=== PATIENT | male | born 1970 | race African-American/Black ===

== ENCOUNTER 2016-10-20 15:22 | Emergency (ER) | payer OTHER ==
[~2016-10-20] VITALS: Ht 170.2 cm; Wt 68.0 kg
[~2016-10-20 15:22] MED LIST: DILANTIN100 MG ORAL
--- NOTE | 2016-10-20 16:29 | Diagnostic Imaging Report ---
Indications: Technique: Spiral acquisitions obtained through the brain. Angled axial and coronal 5 x 5 mm slices were reconstructed. Total dose length product 1340 mGycm. CTDI vol(s) 70 mGy. Dose reduction achieved using automated exposure control Comparison: None Findings: There is a large left convexity craniotomy/craniectomy defect. Small metallic fragments are seen deep and superficial to the defect. There is a large area of cystic encephalomalacia deep to the defect involving nearly the entire left parietal lobe, significant portions of the posterior left frontal lobe, most of the left temporal lobe, and most of the left occipital lobe. This communicates with the left ventricle, which is dilated. There is also some loss of basal ganglia parenchyma. There is slight leftward mediastinal shift which is presumably an ex vacuo phenomenon. No acute hemorrhage no edema. No mass effect. A metallic fragment is seen adjacent to the right optic globe. The orbits are otherwise unremarkable. There is an old healed fracture deformity of the left zygomatic arch. Included sinuses are clear. The mastoids are clear. Impression: Large left convexity craniotomy/craniectomy defect. Very large area of underlying encephalomalacia, as described above. Correlate with surgical history as regards etiology. Negative for acute intracranial bleed or mass effect Metallic foreign body adjacent to the right optic globe The CT scanner at [facility] is accredited by the [employer] and the scans are performed using protocols designed to limit radiation exposure to as low as reasonably achievable to attain images of sufficient resolution adequate for diagnostic evaluation.
[2016-10-20] MEDS ORDERED: TOPAMAX25 MG ORAL (16:33)
[2016-10-20 16:40] LABS: BASOPHILS % (AUTO) 1.4 % (0.0-2.0); LYMPHOCYTES % (AUTO) 16.4 % (20.0-45.0); MEAN CORPUSCULAR HEMOGLOBIN 31.9 PG (27.0-31.0); MEAN CORPUSCULAR HGB CONC 35.4 G/DL (32.0-36.0); MEAN CORPUSCULAR VOLUME 90 FL (80-99); MEAN PLATELET VOLUME 5.5 FL (6.5-10.1); MONOCYTES % (AUTO) 6.7 % (1.0-10.0); NEUTROPHILS % (AUTO) 70.5 % (45.0-75.0); PLATELET COUNT 346 K/UL (150-450); RED BLOOD COUNT 4.39 M/UL (4.70-6.10); RED CELL DISTRIBUTION WIDTH 13.6 % (11.6-14.8); WHITE BLOOD COUNT 6.6 K/UL (4.8-10.8)
[2016-10-20 17:04] LABS: AMMONIA 31 umol/L (16-60)
[2016-10-20 17:05] LABS: ACETAMINOPHEN < 10 ug/mL (10-30); ALANINE AMINOTRANSFERASE 17 U/L (3-41); ALBUMIN/GLOBULIN RATIO 1.6 (1.0-2.7); ALCOHOL < 10 mg/dL; ANION GAP 16 (5-15); ASPARTATE AMINO TRANSFERASE 24 U/L (5-40); CALCIUM 9.4 mg/dL (8.6-10.2); CARBON DIOXIDE 26 mEQ/L (20-30); CHLORIDE 96 mEQ/L (98-107); CREATININE 0.8 mg/dL (0.7-1.2); GLOMERULAR FILTRATION RATE > 60 mL/min (>60); HEMOLYSIS 5; POTASSIUM 4.1 mEQ/L (3.4-4.9); SODIUM 138 mEQ/L (135-145); TOTAL PROTEIN 7.5 g/dL (6.6-8.7)
[2016-10-20 17:09] LABS: TROPONIN I < 0.30 ng/mL (<=0.30)
[2016-10-20] MEDS ORDERED: Phenytoin 100mg cap ORAL ONE (17:30)
[2016-10-20 18:20] VITALS: BP 106/54
[2016-10-20 18:26] VITALS: BP 106/54
--- NOTE | 2016-10-20 20:28 | Emergency Room Report ---
History of Present Illness General Chief Complaint: Generalized Weakness Source: Patient Present Illness HPI 46-year-old male presents ED for evaluation. Per EMS patient was sitting in front of grocery store. Bystanders called 911. Patient felt very weak. Patient is poor historian. Patient only states he has history of seizure. Unclear whether patient had a seizure. Patient states he has a history of head injury in the past. Patient states he is compliant with his medications. Denies any alcohol use. Denies any fevers or chills. Denies chest pain or shortness of breath. No aggravating relieving factors. Denies any other associated symptoms Allergies: Coded Allergies: PENICILLINS (Verified Allergy, Unknown, 04/19/16) Patient History Past Medical History: seizures Past Surgical History: none Pertinent Family History: none Immunizations: UTD Reviewed Nursing Documentation: PMH: Agreed, PSxH: Agreed Nursing Documentation-PMH Past Medical History: No History, Except For Hx Seizures: Yes Review of Systems All Other Systems: negative except mentioned in HPI Physical Exam Vital Signs Date Time Temp Pulse Resp B/P Pulse Ox O2 Delivery O2 Flow Rate FiO2 10/20/16 15:15 97.9 69 16 94/64 100 Room Air Sp02 EP Interpretation: reviewed, normal General Appearance: no apparent distress, alert, GCS 15, non-toxic Head: normocephalic, atraumatic Eyes: bilateral eye PERRL, bilateral eye normal inspection ENT: hearing grossly normal, normal pharynx, no angioedema, normal voice Neck: full range of motion, supple/symm/no masses Respiratory: chest non-tender, lungs clear, normal breath sounds, speaking full sentences Cardiovascular #1: regular rate, rhythm, no edema Cardiovascular #2: 2+ carotid (R), 2+ carotid (L), 2+ radial (R), 2+ radial (L) , 2+ dorsalis pedis (R), 2+ dorsalis pedis (L) Gastrointestinal: normal bowel sounds, non tender, soft, non-distended, no guarding, no rebound Rectal: deferred Genitourinary: normal inspection, no CVA tenderness Musculoskeletal: back normal, gait/station normal, normal range of motion, non- tender Neurologic: alert, oriented x3, responsive, motor strength/tone normal, sensory intact, speech normal Psychiatric: judgement/insight normal, memory normal, mood/affect normal, no suicidal/homicidal ideation Reflexes: 3+ bicep (R), 3+ bicep (L), 3+ tricep (R), 3+ tricep (L), 3+ knee (R) , 3+ knee (L) Skin: normal color, no rash, warm/dry, well hydrated Lymphatic: no adenopathy Medical Decision Making Diagnostic Impression: Primary Impression: Episode of generalized weakness Additional Impression: Seizure ER Course Hospital Course 46-year-old M presents to ED with weakness. history of seizures. Differential diagnosis includes- breakthrough seizure, alcohol abuse, noncompliance with medication Clinical course Patient placed on stretcher. Initial history and physical I ordered labs, IV fluids, CT brain Labs-electrolytes okay, no leukocytosis, hemoglobin/hematocrit stable. Dilantin level slightly subtherapeutic CT Brain encephalomalacia, craniotomy/craniectomy defect. nothing acute Patient initially hypotensive, given IV fluids with BP improved given po dilantin Patient allowed to rest is now awake alert oriented x3. ambulating without difficulty. Diagnosis - generalized weakness, seizure stable and discharged to home. Followup with PMD. Return to ED if symptoms recur or worsen Labs Test 10/20/16 16:18 White Blood Count 6.6 K/UL (4.8-10.8) Red Blood Count 4.39 M/UL (4.70-6.10) Hemoglobin 14.0 G/DL (14.2-18.0) Hematocrit 39.6 % (42.0-52.0) Mean Corpuscular Volume 90 FL (80-99) Mean Corpuscular Hemoglobin 31.9 PG (27.0-31.0) Mean Corpuscular Hemoglobin Concent 35.4 G/DL (32.0-36.0) Red Cell Distribution Width 13.6 % (11.6-14.8) Platelet Count 346 K/UL (150-450) Mean Platelet Volume 5.5 FL (6.5-10.1) Neutrophils (%) (Auto) 70.5 % (45.0-75.0) Lymphocytes (%) (Auto) 16.4 % (20.0-45.0) Monocytes (%) (Auto) 6.7 % (1.0-10.0) Eosinophils (%) (Auto) 5.0 % (0.0-3.0) Basophils (%) (Auto) 1.4 % (0.0-2.0) Sodium Level 138 mEQ/L (135-145) Potassium Level 4.1 mEQ/L (3.4-4.9) Chloride Level 96 mEQ/L (98-107) Carbon Dioxide Level 26 mEQ/L (20-30) Anion Gap 16 (5-15) Blood Urea Nitrogen 8 mg/dL (7-23) Creatinine 0.8 mg/dL (0.7-1.2) Estimat Glomerular Filtration Rate > 60 mL/min (>60) Glucose Level 78 mg/dL (74-106) Calcium Level 9.4 mg/dL (8.6-10.2) Total Bilirubin 0.4 mg/dL (0.0-1.2) Aspartate Amino Transf (AST/SGOT) 24 U/L (5-40) Alanine Aminotransferase (ALT/SGPT) 17 U/L (3-41) Alkaline Phosphatase 73 U/L (40-129) Ammonia 31 umol/L (16-60) Total Creatine Kinase 413 U/L (38-174) Troponin I < 0.30 ng/mL (<=0.30) Total Protein 7.5 g/dL (6.6-8.7) Albumin 4.7 g/dL (3.5-5.2) Globulin 2.8 g/dL Albumin/Globulin Ratio 1.6 (1.0-2.7) Salicylates Level < 1 mg/dL (10-30) Acetaminophen Level < 10 ug/mL (10-30) Phenytoin (Dilantin) Level 9.1 ug/mL (10-20) Serum Alcohol < 10 mg/dL CT/MRI/US Diagnostic Results CT/MRI/US Diagnostic Results : Imaging Test Ordered: CT head Impression encephalomalacia. craniotomy/craniectomy defect Last Vital Signs Date Time Temp Pulse Resp B/P Pulse Ox O2 Delivery O2 Flow Rate FiO2 10/20/16 18:26 97.9 66 16 106/54 100 Room Air Status: improved Disposition: HOME, SELF-CARE Condition: Stable Referrals: KYLE DICKINSONREFERRING (PCP) Patient Instructions: FLETCHER Wilson M.D. Oct 20, 2016 20:28
== END 2016-10-20 18:27 | disposition home or self-care (01) ==
LOC: EDBD 15:22 → EMR 15:56
DX: R53.1 Weakness (principal); G40.909 Epilepsy, unspecified, not intractable, without status epilepticus; G93.89 Other specified disorders of brain; Z98.890 Other specified postprocedural states
CPT/HCPCS: 36415; 70450; 80053; 80185; 80329; 82140; 82550; 82962; 84484; 85025; 96374